=== PATIENT | male | born 1965 | race Caucasian/White ===

== ENCOUNTER 2018-12-19 19:32 | Emergency (ER) | payer OTHER ==
[2018-12-19] MEDS ORDERED: Amoxicillin/Clavulanate K 875-125 MG Tab PO ONE (19:33)
--- NOTE | 2018-12-19 20:33 | EDM.PDOC ---
ED HPI GENERAL MEDICAL PROBLEM - General Chief Complaint: General Stated Complaint: nail through hand Time Seen by Provider: 12/19/18 19:40 Source of Information: Reports: Patient History Limitations: Reports: No Limitations - History of Present Illness INITIAL COMMENTS - FREE TEXT/NARRATIVE: Jefry is a 53 year old male who presents to the ED with c/o nail through his left hand. He reports he was sheet rocking with a nail gun. Reports it was a new nail, he was attempting to nail it through piece of wood, which was apparently moldy/wet and it went through the piece of wood and directly into his hand. He denies any significant pain. Reports he is able to move hand and fingers without difficulty. No bleeding noted to site. He has no other complaints. Has nail protruding thorough hand between 4th and 5th metacarpal. Has full ROM to both 4th and 5th digits. Onset: Today, Sudden Location: Reports: Upper Extremity, Left Left Hand Pain Score (Numeric/FACES): 5 - Related Data Allergies Allergy/AdvReac Type Severity Reaction Status Date / Time No Known Allergies Allergy Verified 12/19/18 19:34 Home Meds: Home Meds Carbidopa/Levodopa [Duopa 4.63 mg-20 mg/ml Suspens] 192 ml IV DAILY 12/19/18 [ History] Past Medical History Neurological History: Reports: Parkinson's Social & Family History - Family History Family Medical History: Noncontributory - Tobacco Use Smoking Status *Q: Never Smoker Second Hand Smoke Exposure: No ED ROS GENERAL - Review of Systems Review Of Systems: ROS reveals no pertinent complaints other than HPI. ED EXAM, GENERAL - Physical Exam Exam: See Below Exam Limited By: No Limitations General Appearance: Alert, WD/WN, No Apparent Distress Peripheral Pulses: 2+: Radial (L) Extremities: Normal Range of Motion, Normal Capillary Refill, Other (large nail protruding directly between 4th and 5th metacarpals of left hand, no bleeding, able to move hand and fingers without difficulty) Course - Vital Signs Last Recorded V/S: Last Vital Signs Temp 97.2 F 12/19/18 19:38 Pulse 83 12/19/18 19:38 Resp 18 12/19/18 19:38 BP 124/77 12/19/18 19:38 Pulse Ox 98 12/19/18 19:38 - Orders/Labs/Meds Orders: Active Orders 24 hr Category Date Time Status Hand 2V Lt [CR] Stat Exams 12/19/18 19:52 Taken Meds: Medications Discontinued Medications Generic Name Dose Route Start Last Admin Trade Name Santa PRN Reason Stop Dose Admin Hydrocodone Bitart/Acetaminophen 2 packet 12/19/18 20:30 12/19/18 22:07 Take Home: Acetaminophen/Hydrocod, 2 Tab Pack PO 12/19/18 20:31 Not Given ONETIME ONE Amoxicillin/Clavulanate Potassium 2 packet 12/19/18 20:25 12/19/18 22:07 Take Home: Amox/Clavulanate 875-12, 2 Tab Pac PO 12/19/18 20:26 2 packet ONETIME ONE Administration Sodium Chloride Confirm 12/19/18 20:00 12/19/18 22:05 Normal Saline Administered 12/19/18 20:01 Not Given Dose 1,000 mls @ as directed .ROUTE .STK-MED ONE - Re-Assessments/Exams Free Text/Narrative Re-Assessment/Exam: Consulted with Merline who recommends consulting with ortho that patient would follow up with. After reviewing xrays with no bone involvement and no bleeding or extensive soft tissue injury, opted to remove nail. Nail was removed with needle nose pliers without difficulty. Site irrigated with 1 L NS. Patient tolerated well. Patient has full ROM to wrist, hand, and 4th & 5th digits pre and post nail removal. Discussed risk for infection and possible need for follow up with orthopedics. Patient reports he does not wish to follow up. Declines need for pain medications. Discussed that it was very important for him to at least take the antibiotics. He reports he would take the antibiotics. Discussed that he needed to follow up for recheck if any concerns for infection. Had updated TDap 2 years ago per report. Departure - Departure Time of Disposition: 20:35 Disposition: Home, Self-Care 01 Condition: Good Clinical Impression: Puncture wound of hand, left Qualifiers: Encounter type: initial encounter Foreign body presence: without foreign body Qualified Code(s): S61.432A - Puncture wound without foreign body of left hand, initial encounter - Discharge Information *PRESCRIPTION DRUG MONITORING PROGRAM REVIEWED*: Not Applicable *COPY OF PRESCRIPTION DRUG MONITORING REPORT IN PATIENT [facility]: Not Applicable Instructions: Wound Care, Adult Referrals: PCP,None [Primary Care Provider] - Forms: ED Department Discharge Additional Instructions: - Augmentin twice daily x 10 days - Keep area clean and dry - Monitor for signs/symptoms of infection (redness, swelling, warmth, drainage) - Follow up for recheck if any concerns - My Orders Last 24 Hours: My Active Orders 12/19/18 19:52 Hand 2V Lt [CR] Stat - Assessment/Plan Last 24 Hours: My Active Orders 12/19/18 19:52 Hand 2V Lt [CR] Stat
[2018-12-19] MEDS: Sodium Chloride 0.9% 1,000 ML ONE (22:05)
[2018-12-19] MEDS: Take Home: Amoxicillin/Clavulanate K 875-125 MG Tab, 2 Tab Pack PO ONE (22:07)
[2018-12-19] MEDS: Take Home: Acetaminophen/HYDROcodone 325-5 MG, 2 Tab Pack PO ONE (22:07)
== END 2018-12-19 20:50 | disposition home or self-care (01) ==
LOC: CC.ED 19:32
DX: S61.432A Puncture wound without foreign body of left hand, initial encounter (principal); G20 Parkinson's disease; W29.4XXA Contact with nail gun, initial encounter
CPT/HCPCS: 20520; 73120-LT; 99283-25; A9270-GY

== ENCOUNTER 2023-03-11 18:58 | Observation (INO) | payer BC, MEDICARE ==
[2023-03-11] MEDS ORDERED: Diltiazem 25 MG/5 ML SDV IVPUSH ONE ×3 (19:18→20:52)
[2023-03-11 19:21] LABS: BASOPHILS ABSOLUTE AUTO 0.03 10^3/uL (0.00-0.50); BASOPHILS PERCENT AUTO 0.5 % (0-1); EOSINOPHILS ABSOLUTE AUTO 0.14 10^3/uL (0.00-1.50); EOSINOPHILS PERCENT AUTO 2.2 % (0-6); HEMATOCRIT 40.4 % (42.0-52.0); HEMOGLOBIN 13.5 g/dL (14.0-18.0); IMMATURE GRAN ABSOLUTE AUTO 0.01 10^3/uL (0.00-0.49); IMMATURE GRAN PERCENT AUTO 0.2 % (0.0-4.9); LYMPHOCYTES ABSOLUTE AUTO 1.27 10^3/uL (0.60-5.00); LYMPHOCYTES PERCENT AUTO 19.6 % (24-44); MEAN CORPUSCULAR HEMOGLOBIN 30.1 pg (27.0-32.0); MEAN CORPUSCULAR HGB CONC 33.4 g/dL (32.0-36.0); MONOCYTES ABSOLUTE AUTO 0.71 10^3/uL (0.00-1.50); NEUTROPHILS ABSOLUTE AUTO 4.31 x10^3/uL (1.80-8.00); NEUTROPHILS PERCENT AUTO 66.5 % (41-71); PLATELET COUNT,PLT 269 10^3/uL (150-400); RED BLOOD CELL COUNT 4.49 x10^6/uL (4.50-6.00); WHITE BLOOD CELL COUNT,WBC 6.5 10^3/uL (4.0-11.0)
[2023-03-11] MEDS ORDERED: Sodium Chloride 0.9% 500 ML IV SCH (19:30)
[2023-03-11 19:39] LABS: ALBUMIN 3.5 g/dL (3.4-5.0); BILIRUBIN TOTAL 0.7 mg/dL (0.0-1.0); C-REACTIVE PROTEIN 0.46 mg/dL (<=0.30); CALCIUM 8.9 mg/dL (8.4-10.1); CREATININE 0.9 mg/dL (0.7-1.3); EST CRCL DRUG DOSING (CG) 93.5 mL/min; MAGNESIUM 1.6 mg/dL (1.8-2.4); PROTEIN TOTAL,TP 7.4 g/dL (6.4-8.2)
[2023-03-11] MEDS ORDERED: Iopamidol 755 Mg/ML 100 ML Bottle IVPUSH ONE (19:57)
[2023-03-11] MEDS ORDERED: Apixaban 5 MG Tab PO ONE (22:08)
[2023-03-11] MEDS ORDERED: Ondansetron 4 MG Tab.DIS PO PRN (22:08)
[2023-03-11] MEDS ORDERED: Ondansetron 4 MG/2 ML SDV IV PRN (22:08)
[2023-03-11] MEDS ORDERED: Sodium Chloride 0.9% 1,000 ML IV SCH (22:08)
[2023-03-11] MEDS ORDERED: Acetaminophen 325 MG Tab PO PRN (22:08)
[2023-03-11] MEDS: Diltiazem IR 30 MG Tab PO SCH (22:23)
[2023-03-12] MEDS: Diltiazem IR 30 MG Tab PO SCH (04:30)
[2023-03-12 07:36] LABS: BASOPHILS ABSOLUTE AUTO 0.03 10^3/uL (0.00-0.50); BASOPHILS PERCENT AUTO 0.7 % (0-1); EOSINOPHILS ABSOLUTE AUTO 0.25 10^3/uL (0.00-1.50); EOSINOPHILS PERCENT AUTO 5.5 % (0-6); HEMATOCRIT 36.2 % (42.0-52.0); HEMOGLOBIN 12.1 g/dL (14.0-18.0); LYMPHOCYTES ABSOLUTE AUTO 1.85 10^3/uL (0.60-5.00); LYMPHOCYTES PERCENT AUTO 40.6 % (24-44); MEAN CORPUSCULAR HEMOGLOBIN 30.2 pg (27.0-32.0); MEAN CORPUSCULAR HGB CONC 33.4 g/dL (32.0-36.0); MEAN CORPUSCULAR VOLUME 90.3 fL (83.0-97.0); MONOCYTES ABSOLUTE AUTO 0.55 10^3/uL (0.00-1.50); MONOCYTES PERCENT AUTO 12.1 % (0-10); NEUTROPHILS ABSOLUTE AUTO 1.88 x10^3/uL (1.80-8.00); NEUTROPHILS PERCENT AUTO 41.1 % (41-71); PLATELET COUNT,PLT 237 10^3/uL (150-400); RED BLOOD CELL COUNT 4.01 x10^6/uL (4.50-6.00); WHITE BLOOD CELL COUNT,WBC 4.6 10^3/uL (4.0-11.0)
[2023-03-12 07:56] LABS: ALBUMIN 2.9 g/dL (3.4-5.0); BILIRUBIN TOTAL 0.7 mg/dL (0.0-1.0); CALCIUM 8.1 mg/dL (8.4-10.1); CREATININE 0.7 mg/dL (0.7-1.3); EST CRCL DRUG DOSING (CG) 120.22 mL/min; POTASSIUM,K 3.9 mEq/L (3.5-5.0); PROTEIN TOTAL,TP 6.4 g/dL (6.4-8.2)
[2023-03-12] MEDS ORDERED: LEVODOPA IV SCH (08:00)
[2023-03-12] MEDS ORDERED: CARBIDOPA IV SCH (08:00)
[2023-03-12] MEDS ORDERED: [UNRECOGNIZED DRUG - OTHER] IV SCH (08:00)
== END 2023-03-12 10:47 | disposition home or self-care (01) ==
LOC: CC.ED 18:58 → CC.MS 20:32 → UNDOADMOB 20:45 → CC.MS 20:45
PROVIDERS: ADMIT Nurse Practitioner Family; ATTEND Nurse Practitioner Family
DX: R42 Dizziness and giddiness (principal); I48.0 Paroxysmal atrial fibrillation; R07.89 Other chest pain; R79.1 Abnormal coagulation profile; Z79.01 Long term (current) use of anticoagulants; Z79.899 Other long term (current) drug therapy; Z20.822 Contact with and (suspected) exposure to COVID-19
CPT/HCPCS: 36415; 71046; 71275; 80053; 83735; 84484; 85025; 85379; 86140; 87635; 87804; 93005; A9270; J3490; J7030; J7040; Q9967; 93010; 96374; 96376; 99223; 99238; 99285-25; G0378; U0002

== ENCOUNTER 2023-11-02 17:00 | Observation (INO) | payer MEDICARE ==
[2023-11-02] MEDS ORDERED: Sodium Chloride 0.9% 10 ML Syringe FLUSH PRN (17:21)
[2023-11-02] MEDS: Diltiazem 25 MG/5 ML SDV IVPUSH ONE (17:26)
[2023-11-02 17:40] LABS: BASOPHILS ABSOLUTE AUTO 0.03 10^3/uL (0.00-0.50); BASOPHILS PERCENT AUTO 0.4 % (0-1); EOSINOPHILS ABSOLUTE AUTO 0.16 10^3/uL (0.00-1.50); EOSINOPHILS PERCENT AUTO 2.4 % (0-6); HEMATOCRIT 40.5 % (42.0-52.0); HEMOGLOBIN 13.3 g/dL (14.0-18.0); IMMATURE GRAN ABSOLUTE AUTO 0.01 10^3/uL (0.00-0.49); IMMATURE GRAN PERCENT AUTO 0.1 % (0.0-4.9); LYMPHOCYTES ABSOLUTE AUTO 1.42 10^3/uL (0.60-5.00); LYMPHOCYTES PERCENT AUTO 20.9 % (24-44); MEAN CORPUSCULAR HEMOGLOBIN 29.8 pg (27.0-32.0); MEAN CORPUSCULAR HGB CONC 32.8 g/dL (32.0-36.0); MEAN CORPUSCULAR VOLUME 90.8 fL (83.0-97.0); MONOCYTES ABSOLUTE AUTO 0.43 10^3/uL (0.00-1.50); MONOCYTES PERCENT AUTO 6.3 % (0-10); NEUTROPHILS ABSOLUTE AUTO 4.74 x10^3/uL (1.80-8.00); NEUTROPHILS PERCENT AUTO 69.9 % (41-71); PLATELET COUNT,PLT 291 10^3/uL (150-400); RED BLOOD CELL COUNT 4.46 x10^6/uL (4.50-6.00); WHITE BLOOD CELL COUNT,WBC 6.8 10^3/uL (4.0-11.0)
[2023-11-02 18:01] LABS: ALANINE AMINOTRANSFERASE,ALT 16 U/L (12-78); ALBUMIN 3.4 g/dL (3.4-5.0); ALKALINE PHOSPHATASE 140 U/L (46-116); ASPARTATE AMNIOTRANSFERASE,AST 38 U/L (15-37); BILIRUBIN TOTAL 1.3 mg/dL (0.0-1.0); BLOOD UREA NITROGEN,BUN 15 mg/dL (7-18); CARBON DIOXIDE,CO2 24 mmol/L (21-32); CHLORIDE,CL 105 mEq/L (98-106); CREATININE 0.9 mg/dL (0.7-1.3); ESTIMATED GFR 99 mL/min (>=60); GLUCOSE RANDOM 110 mg/dL (75-99); LIPASE 33 U/L (16-77); MAGNESIUM 1.8 mg/dL (1.8-2.4); POTASSIUM,K 4.3 mEq/L (3.5-5.0); PROTEIN TOTAL,TP 7.7 g/dL (6.4-8.2); SODIUM,NA 142 mEq/L (136-145)
[2023-11-02] MEDS ORDERED: Melatonin 3 MG Tab PO PRN (18:26)
[2023-11-02] MEDS ORDERED: Acetaminophen 325 MG Tab PO PRN (18:26)
[2023-11-02] MEDS ORDERED: Ondansetron 4 MG/2 ML SDV IV PRN (18:26)
[2023-11-02] MEDS ORDERED: Ondansetron 4 MG Tab.DIS PO PRN (18:26)
[2023-11-02] MEDS: Diltiazem 100 MG in Sodium Chloride 0.9% 100 ML IV SCH (18:40)
[2023-11-02] MEDS: Carbidopa/Levodopa 25-100 MG Tab PO ONE (18:40)
[2023-11-02] MEDS: Carbidopa/Levodopa 25-250 MG Tab PO SCH (19:54)
[2023-11-02] MEDS: Apixaban 5 MG Tab PO ONE (20:38)
[2023-11-03 07:41] LABS: BASOPHILS ABSOLUTE AUTO 0.02 10^3/uL (0.00-0.50); BASOPHILS PERCENT AUTO 0.3 % (0-1); EOSINOPHILS PERCENT AUTO 2.9 % (0-6); HEMATOCRIT 38.3 % (42.0-52.0); HEMOGLOBIN 12.6 g/dL (14.0-18.0); IMMATURE GRAN ABSOLUTE AUTO 0.01 10^3/uL (0.00-0.49); IMMATURE GRAN PERCENT AUTO 0.1 % (0.0-4.9); MEAN CORPUSCULAR HEMOGLOBIN 29.8 pg (27.0-32.0); MEAN CORPUSCULAR HGB CONC 32.9 g/dL (32.0-36.0); MEAN CORPUSCULAR VOLUME 90.5 fL (83.0-97.0); MONOCYTES PERCENT AUTO 7.2 % (0-10); NEUTROPHILS ABSOLUTE AUTO 4.17 x10^3/uL (1.80-8.00); NEUTROPHILS PERCENT AUTO 60.5 % (41-71); PLATELET COUNT,PLT 291 10^3/uL (150-400); RED BLOOD CELL COUNT 4.23 x10^6/uL (4.50-6.00); WHITE BLOOD CELL COUNT,WBC 6.9 10^3/uL (4.0-11.0)
[2023-11-03 07:56] LABS: APPEARANCE,URINE CLEAR (CLEAR); BILIRUBIN,URINE NEGATIVE (NEGATIVE); COLOR,URINE YELLOW (YELLOW); GLUCOSE,URINE NEGATIVE (NEGATIVE); KETONES,URINE NEGATIVE (NEGATIVE); LEUKOCYTE ESTERASE,URINE NEGATIVE (NEGATIVE); NITRITE,URINE NEGATIVE (NEGATIVE); OCCULT BLOOD,URINE NEGATIVE (NEGATIVE); PROTEIN,URINE NEGATIVE (NEGATIVE)
[2023-11-03 08:08] LABS: ALBUMIN 3.2 g/dL (3.4-5.0); BILIRUBIN TOTAL 1.9 mg/dL (0.0-1.0); C-REACTIVE PROTEIN 0.75 mg/dL (<=0.50); CALCIUM 8.8 mg/dL (8.4-10.1); CREATININE 0.9 mg/dL (0.7-1.3); EST CRCL DRUG DOSING (CG) 92.38 mL/min; POTASSIUM,K 4.3 mEq/L (3.5-5.0); PROTEIN TOTAL,TP 7.3 g/dL (6.4-8.2)
[2023-11-03] MEDS: Apixaban 5 MG Tab PO SCH (08:09)
[2023-11-03] MEDS: Diltiazem 180 MG Cap.CD PO SCH (10:27)
[2023-11-04] MEDS: Carbidopa/Levodopa 25-250 MG Tab PO ONE ×2 (03:16→15:10)
[2023-11-04 07:46] LABS: BASOPHILS ABSOLUTE AUTO 0.02 10^3/uL (0.00-0.50); BASOPHILS PERCENT AUTO 0.3 % (0-1); EOSINOPHILS ABSOLUTE AUTO 0.22 10^3/uL (0.00-1.50); EOSINOPHILS PERCENT AUTO 3.7 % (0-6); HEMATOCRIT 39.9 % (42.0-52.0); HEMOGLOBIN 13.1 g/dL (14.0-18.0); IMMATURE GRAN ABSOLUTE AUTO 0.01 10^3/uL (0.00-0.49); IMMATURE GRAN PERCENT AUTO 0.2 % (0.0-4.9); LYMPHOCYTES ABSOLUTE AUTO 1.65 10^3/uL (0.60-5.00); LYMPHOCYTES PERCENT AUTO 28.1 % (24-44); MEAN CORPUSCULAR HEMOGLOBIN 29.7 pg (27.0-32.0); MEAN CORPUSCULAR HGB CONC 32.8 g/dL (32.0-36.0); MEAN CORPUSCULAR VOLUME 90.5 fL (83.0-97.0); MONOCYTES ABSOLUTE AUTO 0.46 10^3/uL (0.00-1.50); MONOCYTES PERCENT AUTO 7.8 % (0-10); NEUTROPHILS ABSOLUTE AUTO 3.51 x10^3/uL (1.80-8.00); NEUTROPHILS PERCENT AUTO 59.9 % (41-71); PLATELET COUNT,PLT 282 10^3/uL (150-400); RED BLOOD CELL COUNT 4.41 x10^6/uL (4.50-6.00); WHITE BLOOD CELL COUNT,WBC 5.9 10^3/uL (4.0-11.0)
[2023-11-04 08:09] LABS: ALBUMIN 3.1 g/dL (3.4-5.0); BILIRUBIN TOTAL 1.4 mg/dL (0.0-1.0); CALCIUM 8.5 mg/dL (8.4-10.1); CREATININE 0.9 mg/dL (0.7-1.3); EST CRCL DRUG DOSING (CG) 92.38 mL/min; POTASSIUM,K 3.8 mEq/L (3.5-5.0); PROTEIN TOTAL,TP 7.1 g/dL (6.4-8.2)
== END 2023-11-04 16:40 | disposition home or self-care (01) ==
LOC: CC.ED 17:00 → UNDOADMOB 18:17 → CC.MS 18:17
PROVIDERS: ADMIT Nurse Practitioner Family; ATTEND Nurse Practitioner Family
DX: G20.A1 Parkinson's disease without dyskinesia, without mention of fluctuations (principal); I48.91 Unspecified atrial fibrillation; Z79.01 Long term (current) use of anticoagulants; Z79.899 Other long term (current) drug therapy
CPT/HCPCS: 36415; 71045; 74019; 80053; 81003; 83690; 83735; 84484; 85025; 86140; 93005; 93010; 96365; 96366; 96374; 96376; 99223; 99233; 99239; 99285-25; A9270-GY; G0378; J3490

== ENCOUNTER 2024-05-21 14:42 | Inpatient (IN) | payer MEDICARE, MEDICAID ==
[2024-05-21] MEDS ORDERED: Ondansetron 4 MG Tab.DIS PO PRN (14:55)
[2024-05-21] MEDS ORDERED: Acetaminophen 325 MG Tab PO PRN (14:55)
[2024-05-21] MEDS ORDERED: Ondansetron 4 MG/2 ML SDV IV PRN (14:55)
[2024-05-21] MEDS ORDERED: Sodium Chloride 0.9% 10 ML Syringe FLUSH PRN (14:55)
[2024-05-21 15:11] LABS: BASOPHILS ABSOLUTE AUTO 0.05 10^3/uL (0.00-0.50); BASOPHILS PERCENT AUTO 0.9 % (0-1); EOSINOPHILS PERCENT AUTO 3.5 % (0-6); HEMATOCRIT 39.6 % (42.0-52.0); HEMOGLOBIN 12.8 g/dL (14.0-18.0); LYMPHOCYTES PERCENT AUTO 19.3 % (24-44); MEAN CORPUSCULAR HEMOGLOBIN 30.3 pg (27.0-32.0); MEAN CORPUSCULAR HGB CONC 32.3 g/dL (32.0-36.0); MEAN CORPUSCULAR VOLUME 93.8 fL (83.0-97.0); MONOCYTES ABSOLUTE AUTO 0.57 10^3/uL (0.00-1.50); NEUTROPHILS ABSOLUTE AUTO 3.79 x10^3/uL (1.80-8.00); NEUTROPHILS PERCENT AUTO 66.3 % (41-71); PLATELET COUNT,PLT 249 10^3/uL (150-400); RED BLOOD CELL COUNT 4.22 x10^6/uL (4.50-6.00); WHITE BLOOD CELL COUNT,WBC 5.7 10^3/uL (4.0-11.0)
[2024-05-21 15:35] LABS: ALANINE AMINOTRANSFERASE,ALT 13 U/L (12-78); ALBUMIN 3.3 g/dL (3.4-5.0); ALKALINE PHOSPHATASE 205 U/L (46-116); ASPARTATE AMNIOTRANSFERASE,AST 27 U/L (15-37); BILIRUBIN TOTAL 2.2 mg/dL (0.0-1.0); BLOOD UREA NITROGEN,BUN 22 mg/dL (7-18); C-REACTIVE PROTEIN 1.85 mg/dL (<=0.50); CARBON DIOXIDE,CO2 26 mmol/L (21-32); CHLORIDE,CL 104 mEq/L (98-106); CREATININE 0.9 mg/dL (0.7-1.3); GLUCOSE RANDOM 144 mg/dL (75-99); MAGNESIUM 1.9 mg/dL (1.8-2.4); POTASSIUM,K 3.8 mEq/L (3.5-5.0); PRO B-TYPE NATRIUR PEPT,BNPPRO 5800 pg/mL (0-1000); PROTEIN TOTAL,TP 7.8 g/dL (6.4-8.2); SODIUM,NA 140 mEq/L (136-145)
[2024-05-21 15:36] LABS: ESTIMATED GFR 99 mL/min (>=60)
[2024-05-21] MEDS: cefTRIAXone 2 GM Vial IVPUSH SCH (15:40)
[2024-05-21] MEDS: Furosemide 100 MG/10 ML SDV IVPUSH ONE (15:40)
[2024-05-21] MEDS ORDERED: Carbidopa/Levodopa 25-100 MG Tab.ER PO ONE (17:24)
[2024-05-21] MEDS: Carbidopa/Levodopa 25-100 MG Tab PO PRN (17:47)
[2024-05-21] MEDS: Carbidopa/Levodopa 25-100 MG Tab.ER PO SCH (17:47)
[2024-05-21] MEDS: CARBIDOPA GTUBE SCH (19:40)
[2024-05-21] MEDS: LEVODOPA GTUBE SCH (19:40)
[2024-05-21] MEDS: Apixaban 5 MG Tab PO SCH (19:49)
[2024-05-21] MEDS: Metoprolol Tartrate 50 MG Tab PO SCH (19:49)
[2024-05-22 00:27] LABS: APPEARANCE,URINE CLEAR (CLEAR); BILIRUBIN,URINE NEGATIVE (NEGATIVE); COLOR,URINE YELLOW (YELLOW); GLUCOSE,URINE NEGATIVE (NEGATIVE); KETONES,URINE TRACE mg/dL (NEGATIVE); LEUKOCYTE ESTERASE,URINE NEGATIVE (NEGATIVE); NITRITE,URINE NEGATIVE (NEGATIVE); OCCULT BLOOD,URINE NEGATIVE (NEGATIVE); PROTEIN,URINE NEGATIVE (NEGATIVE); UROBILINOGEN,URINE >=8.0 EU/dL (0.2-1.0)
[2024-05-22] MEDS: Carbidopa/Levodopa 25-100 MG Tab.ER ONE (01:35)
[2024-05-22] MEDS: Lactobacillus Rhamnosus GG (Probiotic) Cap PO SCH (07:33)
[2024-05-22] MEDS: Furosemide 40 MG/4 ML VIAL IVPUSH SCH (07:34)
[2024-05-22 07:40] LABS: BASOPHILS ABSOLUTE AUTO 0.07 10^3/uL (0.00-0.50); EOSINOPHILS ABSOLUTE AUTO 0.26 10^3/uL (0.00-1.50); EOSINOPHILS PERCENT AUTO 3.7 % (0-6); HEMATOCRIT 39.8 % (42.0-52.0); HEMOGLOBIN 13.2 g/dL (14.0-18.0); IMMATURE GRAN ABSOLUTE AUTO 0.02 10^3/uL (0.00-0.49); IMMATURE GRAN PERCENT AUTO 0.3 % (0.0-4.9); LYMPHOCYTES ABSOLUTE AUTO 1.65 10^3/uL (0.60-5.00); LYMPHOCYTES PERCENT AUTO 23.4 % (24-44); MEAN CORPUSCULAR HEMOGLOBIN 30.8 pg (27.0-32.0); MEAN CORPUSCULAR HGB CONC 33.2 g/dL (32.0-36.0); MEAN CORPUSCULAR VOLUME 92.8 fL (83.0-97.0); MONOCYTES ABSOLUTE AUTO 0.72 10^3/uL (0.00-1.50); MONOCYTES PERCENT AUTO 10.2 % (0-10); NEUTROPHILS ABSOLUTE AUTO 4.34 x10^3/uL (1.80-8.00); NEUTROPHILS PERCENT AUTO 61.4 % (41-71); PLATELET COUNT,PLT 287 10^3/uL (150-400); RED BLOOD CELL COUNT 4.29 x10^6/uL (4.50-6.00); WHITE BLOOD CELL COUNT,WBC 7.1 10^3/uL (4.0-11.0)
[2024-05-22 07:59] LABS: ALBUMIN 3.5 g/dL (3.4-5.0); BILIRUBIN TOTAL 1.6 mg/dL (0.0-1.0); C-REACTIVE PROTEIN 1.75 mg/dL (<=0.50); CALCIUM 8.9 mg/dL (8.4-10.1); CREATININE 0.7 mg/dL (0.7-1.3); EST CRCL DRUG DOSING (CG) 117.32 mL/min; POTASSIUM,K 3.6 mEq/L (3.5-5.0); PROTEIN TOTAL,TP 8.2 g/dL (6.4-8.2)
[2024-05-22] MEDS: Lisinopril 10 MG Tab PO SCH (08:11)
[2024-05-22] MEDS: CARBIDOPA GTUBE SCH (09:24)
[2024-05-22] MEDS: LEVODOPA GTUBE SCH (09:24)
[2024-05-22] MEDS: Potassium Chloride 20 MEQ Tab.ER PO SCH (10:46)
[2024-05-22] MEDS: ALPRAZolam 0.25 MG Tab PO PRN (19:43)
[2024-05-23 08:21] LABS: BASOPHILS ABSOLUTE AUTO 0.03 10^3/uL (0.00-0.50); BASOPHILS PERCENT AUTO 0.5 % (0-1); EOSINOPHILS ABSOLUTE AUTO 0.38 10^3/uL (0.00-1.50); EOSINOPHILS PERCENT AUTO 6.3 % (0-6); HEMATOCRIT 37.8 % (42.0-52.0); HEMOGLOBIN 12.4 g/dL (14.0-18.0); IMMATURE GRAN ABSOLUTE AUTO 0.01 10^3/uL (0.00-0.49); IMMATURE GRAN PERCENT AUTO 0.2 % (0.0-4.9); LYMPHOCYTES PERCENT AUTO 26.4 % (24-44); MEAN CORPUSCULAR HEMOGLOBIN 30.5 pg (27.0-32.0); MEAN CORPUSCULAR HGB CONC 32.8 g/dL (32.0-36.0); MEAN CORPUSCULAR VOLUME 93.1 fL (83.0-97.0); MONOCYTES ABSOLUTE AUTO 0.65 10^3/uL (0.00-1.50); MONOCYTES PERCENT AUTO 10.7 % (0-10); NEUTROPHILS ABSOLUTE AUTO 3.39 x10^3/uL (1.80-8.00); NEUTROPHILS PERCENT AUTO 55.9 % (41-71); PLATELET COUNT,PLT 262 10^3/uL (150-400); RED BLOOD CELL COUNT 4.06 x10^6/uL (4.50-6.00); WHITE BLOOD CELL COUNT,WBC 6.1 10^3/uL (4.0-11.0)
[2024-05-23 08:50] LABS: BILIRUBIN TOTAL 1.4 mg/dL (0.0-1.0); C-REACTIVE PROTEIN 1.22 mg/dL (<=0.50); CALCIUM 8.6 mg/dL (8.4-10.1); CREATININE 0.8 mg/dL (0.7-1.3); EST CRCL DRUG DOSING (CG) 102.66 mL/min; POTASSIUM,K 3.3 mEq/L (3.5-5.0); PROTEIN TOTAL,TP 7.2 g/dL (6.4-8.2)
[2024-05-23] MEDS: Potassium Chloride 20 MEQ Tab.ER PO SCH (13:23)
[2024-05-23] MEDS: Furosemide 40 MG/4 ML VIAL IVPUSH SCH (16:23)
[2024-05-24 07:51] LABS: BASOPHILS ABSOLUTE AUTO 0.06 10^3/uL (0.00-0.50); BASOPHILS PERCENT AUTO 1.1 % (0-1); EOSINOPHILS ABSOLUTE AUTO 0.42 10^3/uL (0.00-1.50); EOSINOPHILS PERCENT AUTO 7.5 % (0-6); HEMATOCRIT 40.3 % (42.0-52.0); HEMOGLOBIN 13.1 g/dL (14.0-18.0); IMMATURE GRAN ABSOLUTE AUTO 0.01 10^3/uL (0.00-0.49); IMMATURE GRAN PERCENT AUTO 0.2 % (0.0-4.9); LYMPHOCYTES PERCENT AUTO 30.4 % (24-44); MEAN CORPUSCULAR HEMOGLOBIN 30.4 pg (27.0-32.0); MEAN CORPUSCULAR HGB CONC 32.5 g/dL (32.0-36.0); MEAN CORPUSCULAR VOLUME 93.5 fL (83.0-97.0); MONOCYTES ABSOLUTE AUTO 0.54 10^3/uL (0.00-1.50); MONOCYTES PERCENT AUTO 9.7 % (0-10); NEUTROPHILS ABSOLUTE AUTO 2.86 x10^3/uL (1.80-8.00); NEUTROPHILS PERCENT AUTO 51.1 % (41-71); PLATELET COUNT,PLT 299 10^3/uL (150-400); RED BLOOD CELL COUNT 4.31 x10^6/uL (4.50-6.00); WHITE BLOOD CELL COUNT,WBC 5.6 10^3/uL (4.0-11.0)
[2024-05-24 08:30] LABS: ALBUMIN 3.1 g/dL (3.4-5.0); BILIRUBIN TOTAL 1.3 mg/dL (0.0-1.0); C-REACTIVE PROTEIN 0.98 mg/dL (<=0.50); CALCIUM 8.8 mg/dL (8.4-10.1); CREATININE 0.7 mg/dL (0.7-1.3); EST CRCL DRUG DOSING (CG) 117.32 mL/min; POTASSIUM,K 3.8 mEq/L (3.5-5.0); PROTEIN TOTAL,TP 7.6 g/dL (6.4-8.2)
== END 2024-05-24 16:32 | disposition home or self-care (01) | DRG 293 ==
LOC: UNDOADMIN 14:42 → CC.MS 14:42
PROVIDERS: ADMIT Nurse Practitioner Family; ATTEND Nurse Practitioner Family
DX: I50.9 Heart failure, unspecified (principal); I48.91 Unspecified atrial fibrillation; B95.61 Methicillin susceptible Staphylococcus aureus infection as the cause of diseases classified elsewhere; L08.9 Local infection of the skin and subcutaneous tissue, unspecified; N50.89 Other specified disorders of the male genital organs; Z79.01 Long term (current) use of anticoagulants; Z79.899 Other long term (current) drug therapy; Z86.69 Personal history of other diseases of the nervous system and sense organs
CPT/HCPCS: 36415; 71046; 80053; 81003; 83735; 83880; 84484; 85025; 86140; 87070; 87077; 87186; 87205; 93005; 93010; 99223; 99232; 99233; 99239; A6212; A9270-GY; J0696; J1940